=== PATIENT | female | born 1985 | race Two or more races ===

== ENCOUNTER 2019-05-04 12:45 | Inpatient (IN) | payer OTHER ==
[~2019-05-04] VITALS: Ht 160 cm; Wt 68.0 kg
[2019-05-25] MEDS ORDERED: PRENATAL TABLE1 EAC1 PO (01:25)
== END 2019-05-26 13:19 | disposition home or self-care (01) | DRG 807 ==
LOC: OB/GYN 12:45 → LDR 05-25 01:10 → OB/GYN 05-25 01:31 → LDR 05-25 01:35 → OB/GYN 05-25 05:40
PROVIDERS: ADMIT Obstetrics & Gynecology
PROC: 10E0XZZ Delivery of Products of Conception, External Approach (ICD-10-PCS; principal; 2019-05-25)
PROC: 10907ZC Drainage of Amniotic Fluid, Therapeutic from Products of Conception, Via Natural or Artificial Opening (ICD-10-PCS; 2019-05-25)
PROC: 4A1HXCZ Monitoring of Products of Conception, Cardiac Rate, External Approach (ICD-10-PCS; 2019-05-25)
DX: O80 Encounter for full-term uncomplicated delivery (principal); Z37.0 Single live birth; Z3A.39 39 weeks gestation of pregnancy

== ENCOUNTER 2019-05-23 09:53 | Outpatient (CLI) | payer OTHER | END 2019-05-23 11:04 | disposition home or self-care (01) | LOC: NST 09:53 | DX: Z34.83 Encounter for supervision of other normal pregnancy, third trimester (principal) ==

== ENCOUNTER 2021-09-14 10:59 | Emergency (ER) | payer OTHER ==
[~2021-09-14] VITALS: Ht 160 cm; Wt 52.2 kg
[~2021-09-14 10:59] MED LIST: PRENATAL TABLE1 EAC1 PO
== END 2021-09-14 16:06 | disposition home or self-care (01) ==
LOC: ER 10:59
DX: S09.8XXA Other specified injuries of head, initial encounter (principal); W10.8XXA Fall (on) (from) other stairs and steps, initial encounter; Y93.01 Activity, walking, marching and hiking; Y92.488 Other paved roadways as the place of occurrence of the external cause; Y99.8 Other external cause status